=== PATIENT | female | born 1995 | race Two or more races ===

== ENCOUNTER 2018-09-06 20:02 | Inpatient (IN) | payer MEDICAID ==
[~2018-09-06] VITALS: Ht 165.1 cm; Wt 84.0 kg
[2018-09-06 21:18] LABS: MICROSCOPIC NOT IND
[2018-09-06] MEDS ORDERED: TERBUTALINE 1 MG/ML, 1ML IVPush PRN (23:00)
[2018-09-06] MEDS ORDERED: ONDANSETRON 2MG/ML, 2ML IVPush PRN (23:00)
[2018-09-06] MEDS ORDERED: D5%-LACTATED RINGERS 1,000 ML IV SCH (23:00)
[2018-09-06] MEDS ORDERED: LACTATED RINGERS 1,000 ML IV SCH (23:00)
[2018-09-06] MEDS ORDERED: PENICILLIN GK 5,000,000 UNITS in DEXTROSE 5% 100 ML IVPB ONE (23:00)
[2018-09-06] MEDS ORDERED: FENTANYL PF 100 MCG/2ML IV PRN (23:00)
[2018-09-06] MEDS ORDERED: NEWBORN KIT ONE (23:03)
[2018-09-06] MEDS ORDERED: OXYTOCIN 30U/ 0.9% NaCL 500ML 500 ML ONE (23:03)
[2018-09-06] MEDS ORDERED: LIDOCAINE 1%, 20ML ONE (23:03)
[2018-09-06] MEDS ORDERED: MISOPROSTOL 200 MCG TABLET ONE (23:03)
[2018-09-06] MEDS ORDERED: FENTANYL PF 100 MCG/2ML ONE (23:04)
[2018-09-06] MEDS: FENTANYL PF 100 MCG/2ML IVPush PRN (23:10)
[2018-09-06 23:25] LABS: BASOPHILS # (AUTO) 0.02 x10^3/uL (0-0.1); BASOPHILS % (AUTO) 0 % (0-1); EOSINOPHILS # (AUTO) 0.03 x10^3/uL (0-0.4); EOSINOPHILS % (AUTO) 0 % (1-7); LYMPHOCYTES # (AUTO) 2.76 x10^3/uL (1-3.4); LYMPHOCYTES % (AUTO) 30 % (22-44); MD NO; MEAN CORPUSCULAR HEMOGLOBIN 30.5 pg (27.0-34.8); MEAN CORPUSCULAR HGB CONC 33.6 g/dL (32.4-35.8); MEAN CORPUSCULAR VOLUME 90.7 fL (80-100); MONOCYTES # (AUTO) 0.58 x10^3/uL (0.2-0.8); MONOCYTES % (AUTO) 6 % (2-9); NEUTROPHILS # (AUTO) 5.91 x10^3/uL (1.8-6.8); NEUTROPHILS % (AUTO) 64 % (42-75); PLATELET COUNT 252 x10^3/uL (130-400); RED BLOOD COUNT 4.06 x10^6/uL (3.82-5.3); RED CELL DISTRIBUTION WIDTH 13.6 % (9.6-15.2)
[2018-09-07] MEDS ORDERED: FENTANYL PF 100 MCG/2ML ONE (00:18)
[2018-09-07] MEDS: FENTANYL PF 100 MCG/2ML IVPush PRN (00:21)
[2018-09-07] MEDS ORDERED: IBUPROFEN 600 MG TABLET ONE (01:58)
[2018-09-07] MEDS ORDERED: OXYTOCIN 30U/ 0.9% NaCL 500ML 500 ML ONE (01:59)
[2018-09-07] MEDS ORDERED: OXYcodone/APAP 5/325MG TABLET ONE (01:59)
[2018-09-07] MEDS ORDERED: ONDANSETRON 2MG/ML, 2ML IV PRN (02:00)
[2018-09-07] MEDS ORDERED: OXYcodone/APAP 5/325MG TABLET PO PRN (02:00)
[2018-09-07] MEDS ORDERED: MISOPROSTOL 200 MCG TABLET PR PRN (02:00)
[2018-09-07] MEDS ORDERED: OXYcodone IR 5MG TABLET PO PRN (02:00)
[2018-09-07] MEDS ORDERED: ACETAMINOPHEN 325 MG TABLET PO PRN (02:00)
[2018-09-07] MEDS: IBUPROFEN 600 MG TABLET PO PRN ×2 (02:04→16:50)
[2018-09-07] MEDS: OXYTOCIN 30U/ 0.9% NaCL 500ML 500 ML IV SCH ×3 (02:04→21:52)
[2018-09-07] MEDS ORDERED: PENICILLIN GK 2,500,000 UNITS in DEXTROSE 5% 100 ML IVPB SCH (03:00)
[2018-09-07 04:00] VITALS: BP 100/60
[2018-09-07] MEDS: DOCUSATE 100 MG CAPSULE PO PRN (07:30)
[2018-09-07] MEDS: PRENATAL VIT/IRON/FA 1 EACH TABLET PO SCH (07:30)
[2018-09-07 08:40] VITALS: BP 110/67
[2018-09-07 09:29] LABS: BASOPHILS # (AUTO) 0.03 x10^3/uL (0-0.1); BASOPHILS % (AUTO) 0 % (0-1); EOSINOPHILS # (AUTO) 0.01 x10^3/uL (0-0.4); EOSINOPHILS % (AUTO) 0 % (1-7); LYMPHOCYTES # (AUTO) 2.06 x10^3/uL (1-3.4); LYMPHOCYTES % (AUTO) 17 % (22-44); MD NO; MEAN CORPUSCULAR HEMOGLOBIN 29.5 pg (27.0-34.8); MEAN CORPUSCULAR HGB CONC 32.8 g/dL (32.4-35.8); MEAN CORPUSCULAR VOLUME 90.1 fL (80-100); MONOCYTES # (AUTO) 0.65 x10^3/uL (0.2-0.8); MONOCYTES % (AUTO) 6 % (2-9); NEUTROPHILS # (AUTO) 9.07 x10^3/uL (1.8-6.8); NEUTROPHILS % (AUTO) 77 % (42-75); PLATELET COUNT 242 x10^3/uL (130-400); RED BLOOD COUNT 4.09 x10^6/uL (3.82-5.3); RED CELL DISTRIBUTION WIDTH 14.2 % (9.6-15.2)
[2018-09-07 12:00] VITALS: BP 107/67
[2018-09-07] MEDS ORDERED: DIPH,PERTUSS(ACELL),TET VAC/PF NC IM-VACC ONE ×2 (15:17→16:00)
[2018-09-07 16:30] VITALS: BP 121/74
[2018-09-07 20:00] VITALS: BP 110/67
[2018-09-08] VITALS: BP 110/71
[2018-09-08 08:30] VITALS: BP 103/68
[2018-09-08] MEDS: OXYTOCIN 30U/ 0.9% NaCL 500ML 500 ML IV SCH ×2 (09:19→17:52)
[2018-09-08] MEDS: PRENATAL VIT/IRON/FA 1 EACH TABLET PO SCH (09:27)
[2018-09-08] MEDS: DOCUSATE 100 MG CAPSULE PO PRN (09:27)
[2018-09-08] MEDS: IBUPROFEN 600 MG TABLET PO PRN ×2 (09:27→16:21)
[2018-09-08 20:23] VITALS: BP 111/69
[2018-09-09] MEDS: IBUPROFEN 600 MG TABLET PO PRN (02:38)
[2018-09-09] MEDS: OXYTOCIN 30U/ 0.9% NaCL 500ML 500 ML IV SCH ×2 (06:03→14:53)
[2018-09-09] MEDS: PRENATAL VIT/IRON/FA 1 EACH TABLET PO SCH (08:31)
[2018-09-09] MEDS: DOCUSATE 100 MG CAPSULE PO PRN (08:31)
[2018-09-09 08:35] VITALS: BP 103/67
[2018-09-09] MEDS ORDERED: IBUP-1222 PO (11:06)
== END 2018-09-09 15:15 | disposition home or self-care (01) | DRG 807 ==
LOC: LDOP 20:02 → OBSVTOIN 23:02 → LDIP 23:02 → 2NW 09-07 03:57
PROVIDERS: ADMIT Obstetrics & Gynecology; ATTEND Obstetrics & Gynecology
PROC: 10E0XZZ Delivery of Products of Conception, External Approach (ICD-10-PCS; principal; 2018-09-07)
PROC: 10907ZC Drainage of Amniotic Fluid, Therapeutic from Products of Conception, Via Natural or Artificial Opening (ICD-10-PCS; 2018-09-07)
DX: O60.14X0 Preterm labor third trimester with preterm delivery third trimester, not applicable or unspecified (principal); Z37.0 Single live birth; Z3A.36 36 weeks gestation of pregnancy; Z23 Encounter for immunization
CPT/HCPCS: 36415; 81003; 85025; 86850; 86900; 87086; 90656; 90715; G0378; J2540; J3010; J2590; J7120